=== PATIENT | male | born 2000 | race Caucasian/White ===

== ENCOUNTER 2024-05-01 16:39 | Inpatient (IN) | payer MEDICAID ==
[~2024-05-01] VITALS: Ht 167.6 cm; Wt 73.5 kg
[~2024-05-01 16:39] MED LIST: PIPERACILLIN /TAZOBACTAM 3.375 G in IV D5W 100 ML IV SCH
[2024-05-01 17:00] VITALS: BP 134/76; TEMP 97.2; O2SAT 99
[2024-05-01] MEDS: IV NS 0.9% 1,000 ML IV PRN (18:18)
[2024-05-01 19:00] VITALS: BP 119/84; TEMP 98.1; O2SAT 98
[2024-05-01] MEDS: PIPERACILLIN /TAZOBACTAM 4.5 G in IV D5W 50 ML IV ONE (19:00)
[2024-05-01 19:58] LABS: INR 1.13 (0.91-1.10); PARTIAL THROMBOPLASTIN TIME 28.2 SEC (24.3-34.3); PROTHROMBIN TIME 11.9 SECS (9.2-11.1)
[2024-05-01] MEDS ORDERED: ROPIVACAINE HCL 0.5% 5 MG/ML 30ML VIAL ONE (20:11)
[2024-05-01] MEDS ORDERED: LIDOCAINE 2% JEL UROJET 10 ML MM ONE (20:11)
[2024-05-01] MEDS ORDERED: FENTANYL PF 100MCG/2ML AMPUL ONE (20:12)
[2024-05-01] MEDS ORDERED: MIDAZOLAM HCL 2 MG/2ML VIAL ONE (20:12)
[2024-05-01] MEDS ORDERED: FAMOTIDINE/PF INJ 20 MG/2 ML VIAL IV ONE (20:13)
[2024-05-01] MEDS ORDERED: LIDOCAINE 1%-EPI 1:100,000 20 ML VIAL ONE (20:31)
[2024-05-01] MEDS ORDERED: BUPIVACAINE 0.5 % PF 150 MG/30 ML VIAL ONE (20:31)
[2024-05-01] MEDS ORDERED: BACITRACIN OPHTH OINT 3.5 GM TUBE ONE (20:33)
[2024-05-01] MEDS ORDERED: MEPERIDINE25 MG SYR 25 MG/ML VIAL ONE (22:11)
[2024-05-01] MEDS ORDERED: FLUMAZENIL 0.5 MG VIAL ONE (22:11)
[2024-05-01] MEDS ORDERED: ONDANSETRON HCL/PF 4 MG/2 ML VIAL ONE (22:43)
[2024-05-01] MEDS: ONDANSETRON HCL/PF 4 MG/2 ML VIAL IVP PRN (22:49)
[2024-05-01] MEDS: ONDANSETRON HCL/PF 4 MG/2 ML VIAL IV ONE (22:51)
[2024-05-01 23:17] VITALS: BP 149/90; TEMP 97.9; O2SAT 98
[2024-05-01] MEDS: MORPHINE SULFATE INJ 2 MG/ML DISP.SYRIN IV PRN (23:48)
[2024-05-01] MEDS: IV LR 1000 ML 1,000 ML IV SCH (23:53)
[2024-05-02] MEDS: ACETAMINOPHEN 650 MG/20.3 ML UDC PO SCH (01:16)
[2024-05-02] MEDS: GABAPENTIN 100 MG CAPSULE PO SCH (01:17)
[2024-05-02] MEDS: CELECOXIB 100 MG CAPSULE PO SCH (01:17)
[2024-05-02 01:30] VITALS: BP 125/75; TEMP 97.9; O2SAT 97
[2024-05-02] MEDS: PIPERACILLIN /TAZOBACTAM 3.375 G in IV D5W 100 ML IV SCH (04:05)
[2024-05-02 07:22] LABS: BASOPHILS % (AUTO) 0.1 % (0.0-2.0); HEMATOCRIT 42 % (39-51); HEMOGLOBIN 14.8 g/dL (13.5-17.5); LYMPHOCYTES # (AUTO) 1.1 K/uL (0.8-4.8); LYMPHOCYTES % (AUTO) 7.8 % (20.0-44.0); MEAN CORPUSCULAR HEMOGLOBIN 30 PG (26.0-33.0); MEAN CORPUSCULAR HGB CONC 35 g/dl (31.0-36.0); MEAN CORPUSCULAR VOLUME 85 fL (80-96); MONOCYTES # (AUTO) 0.6 K/uL (0.1-1.30); MONOCYTES % (AUTO) 4.6 % (2.0-12.0); NEUTROPHILS # (AUTO) 12.1 K/uL (1.8-8.9); NEUTROPHILS % (AUTO) 87.5 % (43.0-81.0); PLATELET COUNT (AUTO) 240 K/uL (150-450); RED BLOOD CELL COUNT(AUTO) 4.97 MIL/uL (4.5-6.0); RED CELL DISTRIBUTION WIDTH 13.2 % (11.5-15.0); WHITE BLOOD COUNT (AUTO) 13.9 K/uL (4.3-11.0)
[2024-05-02 07:46] LABS: CALCIUM, SERUM 9.3 mg/dL (8.5-10.1); CREATININE 0.9 mg/dL (0.6-1.3); MAGNESIUM 2.2 mg/dL (1.8-2.4); PHOSPHORUS 4.2 mg/dL (2.5-4.9); POTASSIUM 3.9 mmol/L (3.5-5.1)
[2024-05-02 08:29] VITALS: BP 109/73; TEMP 97.8; O2SAT 100
[2024-05-02] MEDS ORDERED: IV LR 1000 ML 1,000 ML IV PRN (10:46)
== END 2024-05-02 15:41 | disposition home or self-care (01) | DRG 234 ==
LOC: MED 16:39
PROC: 0DTJ4ZZ Resection of Appendix, Percutaneous Endoscopic Approach (ICD-10-PCS; principal; 2024-05-01)
DX: K35.80 Unspecified acute appendicitis (principal); K66.0 Peritoneal adhesions (postprocedural) (postinfection)
CPT/HCPCS: 36415; 80048-TC; 83735-TC; 84100-TC; 85025-TC; 85610-TC; 85730-TC; 86850-TC; A4223; A6403; G0378; J0690; J1100; J2175; J2250; J2270; J2405; J2543; J2704; J2765; J2795; J3010; J3490; J7030; J7050; J7060; J7120

== ENCOUNTER 2024-05-05 16:52 | Emergency (ER) | payer MEDICAID ==
[~2024-05-05] VITALS: Ht 167.6 cm; Wt 73.5 kg
[2024-05-05 17:44] VITALS: BP 143/83; TEMP 98.3; O2SAT 98
== END 2024-05-05 17:44 | disposition home or self-care (01) ==
LOC: ER 16:54
DX: R19.5 Other fecal abnormalities (principal); Z98.890 Other specified postprocedural states; Z90.49 Acquired absence of other specified parts of digestive tract